=== PATIENT | female | born 1970 | race Caucasian/White ===

== ENCOUNTER 2017-05-06 18:21 | Inpatient (IN) | payer OTHER ==
[~2017-05-06] VITALS: Ht 160 cm; Wt 82.5 kg
[2017-05-06 19:15] LABS: microscopic required? NO
[2017-05-06 19:18] LABS: BASOPHIL % 0.5 % (0-2)
[2017-05-06 19:27] LABS: CALCIUM 8.8 mg/dL (8.5-10.1); CARBON DIOXIDE 26.6 mmol/L (21-32); CHLORIDE SERUM 105 mmol/L (98-107); CREATININE SERUM 0.8 mg/dL (0.6-1.0); GFR1 > 60 mL/min; GLUCOSE SERUM 88 mg/dL (74-106); POTASSIUM SERUM 3.9 mmol/L (3.5-5.1); SODIUM SERUM 140 mmol/L (136-145)
[2017-05-06 19:31] LABS: ALBUMIN 3.8 g/dL (3.4-5.0); ALKALINE PHOSPHATASE 93 U/L (46-116); ALT/SGPT 15 U/L (14-59); AST/SGOT 13 U/L (15-37); BILIRUBIN TOTAL 0.4 mg/dL (0.20-1.00); CHOLESTEROL 183 mg/dL (<200); CHOLESTEROL/HDL RATIO 1.9; HDL CHOLESTEROL 97 mg/dL (40-60); LIPASE 177 IU/L (73-393); TRIGLYCERIDES 90 mg/dL (<150)
[2017-05-06 19:39] LABS: FREE T4 1.09 ng/dL (0.76-1.46); FREE THYROXINE INDEX 2.7 ug/dL (1.4-4.5)
[2017-05-06 19:45] LABS: PLATELET COUNT 453 x10^3mcL (130-400); RED CELL DISTRIBUTION WIDTH 16.6 % (11.5-14.5)
[2017-05-06 19:47] LABS: UA SPECIFIC GRAVITY <=1.005 (1.005-1.035); urine erythrocyte NEGATIVE (NEGATIVE)
[2017-05-06 19:56] LABS: T3 TOTAL 0.86 ng/mL
[2017-05-06] MEDS ORDERED: NEURONTIN600 MG PO (22:56)
[2017-05-06] MEDS ORDERED: ATROVENT H0.017 MG/1 INH (22:56)
[2017-05-06 23:16] VITALS: BP 151/93
[2017-05-07 00:09] VITALS: BP 150/92
[2017-05-07 05:51] VITALS: BP 134/90
[2017-05-07 05:54] LABS: BASOPHIL % 0.5 % (0-2); PLATELET COUNT 378 x10^3mcL (130-400)
[2017-05-07 06:24] LABS: CALCIUM 7.9 mg/dL (8.5-10.1); CARBON DIOXIDE 21.4 mmol/L (21-32); CHLORIDE SERUM 110 mmol/L (98-107); CREATININE SERUM 0.7 mg/dL (0.6-1.0); GFR1 > 60 mL/min; GLUCOSE SERUM 82 mg/dL (74-106); MAGNESIUM 2.1 mg/dL (1.8-2.4); SODIUM SERUM 141 mmol/L (136-145)
[2017-05-07 06:35] LABS: RED CELL DISTRIBUTION WIDTH 16.8 % (11.5-14.5)
[2017-05-07 08:28] VITALS: BP 134/82
[2017-05-07 08:28] LABS: AMPHETAMINE QUAL UR NONE DETECTED (NEG <=1000)
[2017-05-07 10:22] VITALS: Ht 160 cm; Wt 82.5 kg
[2017-05-07 14:38] VITALS: BP 147/95
[2017-05-07 17:53] VITALS: BP 154/96
[2017-05-07 21:06] VITALS: BP 145/94
[2017-05-08 05:03] VITALS: BP 121/72
[2017-05-08 06:30] LABS: BASOPHIL % 0.5 % (0-2); PLATELET COUNT 366 x10^3mcL (130-400)
[2017-05-08 06:36] LABS: CALCIUM 8.2 mg/dL (8.5-10.1); CARBON DIOXIDE 24.7 mmol/L (21-32); CHLORIDE SERUM 105 mmol/L (98-107); CREATININE SERUM 0.7 mg/dL (0.6-1.0); GFR1 > 60 mL/min; GLUCOSE SERUM 86 mg/dL (74-106); MAGNESIUM 2.1 mg/dL (1.8-2.4); PHOSPHOROUS 3.1 mg/dL (2.5-4.9); POTASSIUM SERUM 4.2 mmol/L (3.5-5.1); SODIUM SERUM 138 mmol/L (136-145)
[2017-05-08 07:13] LABS: RED CELL DISTRIBUTION WIDTH 16.8 % (11.5-14.5)
[2017-05-08 09:57] VITALS: BP 136/89
[2017-05-08 18:40] VITALS: BP 139/81
[2017-05-08 21:47] VITALS: BP 145/97
[2017-05-09 02:00] VITALS: BP 120/74
[2017-05-09 06:09] VITALS: BP 128/84
[2017-05-09 06:43] LABS: BASOPHIL % 0.5 % (0-2); PLATELET COUNT 352 x10^3mcL (130-400)
[2017-05-09 06:53] LABS: CALCIUM 8.1 mg/dL (8.5-10.1); CARBON DIOXIDE 24.4 mmol/L (21-32); CHLORIDE SERUM 106 mmol/L (98-107); CREATININE SERUM 0.7 mg/dL (0.6-1.0); GFR1 > 60 mL/min; GLUCOSE SERUM 82 mg/dL (74-106); MAGNESIUM 1.9 mg/dL (1.8-2.4); PHOSPHOROUS 3.5 mg/dL (2.5-4.9); POTASSIUM SERUM 3.8 mmol/L (3.5-5.1); SODIUM SERUM 140 mmol/L (136-145)
[2017-05-09 07:18] LABS: RED CELL DISTRIBUTION WIDTH 16.4 % (11.5-14.5)
[2017-05-09] MEDS ORDERED: APAP/OXYCODONE1 TA4 PO (09:53)
[2017-05-09] MEDS ORDERED: SIMETHICONE80 MG CH (09:53)
[2017-05-09] MEDS ORDERED: ZOFRAN ODT4 MG SL (09:54)
[2017-05-09] MEDS ORDERED: DUCODYL5 MG PO (09:55)
[2017-05-09] MEDS ORDERED: MOT800 PO (09:56)
[2017-05-09 10:05] VITALS: BP 120/86
[2017-05-09] MEDS ORDERED: KEFLEX500 M1 PO (10:12)
[2017-05-09 11:57] VITALS: BP 120/86
[2017-05-09 12:10] VITALS: BP 120/86
== END 2017-05-09 14:19 | disposition home or self-care (01) | DRG 337 ==
LOC: ED 18:21 → MU 21:57 → DU 21:57 → MU 05-07 10:31
PROVIDERS: Family Medicine; Specialist; Surgery; ADMIT Family Medicine
PROC: 0DNA0ZZ Release Jejunum, Open Approach (ICD-10-PCS; principal; 2017-05-07 10:30)
DX: K56.5 Intestinal adhesions [bands] with obstruction (postinfection) (principal); J44.9 Chronic obstructive pulmonary disease, unspecified; D47.3 Essential (hemorrhagic) thrombocythemia; G62.9 Polyneuropathy, unspecified; G47.30 Sleep apnea, unspecified; Z98.84 Bariatric surgery status; Z68.32 Body mass index [BMI] 32.0-32.9, adult; F17.210 Nicotine dependence, cigarettes, uncomplicated
CPT/HCPCS: 83880; 84439; J0330; J0690; J0694; J1170; J1644; J1885; J2060; J2250; J2270; J2405; J2704; J2710; J3010; J3490; J7030; J7120; J7620; J7644; Q0092; Q9966

== ENCOUNTER 2017-05-30 22:27 | Emergency (ER) | payer OTHER ==
[~2017-05-30 22:27] MED LIST: APAP/OXYCODONE1 TA4 PO; ATROVENT H0.017 MG/1 INH; DUCODYL5 MG PO; KEFLEX500 M1 PO; MOT800 PO; NEURONTIN600 MG PO; SIMETHICONE80 MG CH; ZOFRAN ODT4 MG SL
[2017-05-31 00:56] VITALS: BP 143/103
== END 2017-05-31 00:05 | disposition left against medical advice (07) ==
LOC: ED 22:27
DX: Z53.21 Procedure and treatment not carried out due to patient leaving prior to being seen by health care provider (principal)

== ENCOUNTER 2017-07-30 14:33 | Emergency (ER) | payer OTHER ==
[~2017-07-30] VITALS: Ht 160 cm; Wt 76.8 kg
[2017-07-30 17:00] LABS: UA SPECIFIC GRAVITY 1.025 (1.005-1.035); microscopic required? YES
[2017-07-30 17:01] LABS: urine erythrocyte 2+ (NEGATIVE)
[2017-07-30 18:19] VITALS: BP 137/89
== END 2017-07-30 18:19 | disposition home or self-care (01) ==
LOC: ED 14:33
PROVIDERS: Emergency Medicine
DX: N76.0 Acute vaginitis (principal); N39.0 Urinary tract infection, site not specified; R03.0 Elevated blood-pressure reading, without diagnosis of hypertension; J44.9 Chronic obstructive pulmonary disease, unspecified; K56.60 Unspecified intestinal obstruction; Z79.1 Long term (current) use of non-steroidal anti-inflammatories (NSAID); Z79.899 Other long term (current) drug therapy
CPT/HCPCS: 36415; 87491; 87591